=== PATIENT | male | born 1940 | race Caucasian/White ===

== ENCOUNTER 2017-05-25 11:45 | Emergency (ER) | payer MEDICARE, BC | END 2017-05-25 13:46 | disposition home or self-care (01) | LOC: D.ER 11:45 | DX: S99.912A Unspecified injury of left ankle, initial encounter (principal); W18.2XXA Fall in (into) shower or empty bathtub, initial encounter; Y93.E1 Activity, personal bathing and showering; Y92.022 Bathroom in mobile home as the place of occurrence of the external cause; S82.832A Other fracture of upper and lower end of left fibula, initial encounter for closed fracture; E11.9 Type 2 diabetes mellitus without complications; F17.200 Nicotine dependence, unspecified, uncomplicated ==

== ENCOUNTER → 2017-06-04 13:11 | Outpatient (CLI) | payer MEDICARE, BC | END | disposition home or self-care (01) | LOC: D.CT 13:11 → D.MRI 13:30 → D.CT 13:30 | DX: M79.672 Pain in left foot (principal); R22.42 Localized swelling, mass and lump, left lower limb; M79.605 Pain in left leg ==

== ENCOUNTER 2019-09-18 10:32 | Emergency (ER) | payer MEDICARE, BC ==
[~2019-09-18] VITALS: Ht 180.3 cm; Wt 103.2 kg
[2019-09-18 10:36] VITALS: Ht 180.3 cm; Wt 103.2 kg
[2019-09-18] MEDS ORDERED: LANOXIN125 MCG PO (10:40)
[2019-09-18] MEDS ORDERED: COUMADIN6 MG PO (10:40)
[2019-09-18] MEDS ORDERED: LIPITOR40 MG PO (10:41)
[2019-09-18] MEDS ORDERED: TOPROL XL100 MG PO (10:41)
[2019-09-18] MEDS ORDERED: FLOMAX0.4 MG PO (10:41)
[2019-09-18] MEDS ORDERED: DILTIAZEM 24HR120 M3 PO (10:41)
[2019-09-18] MEDS ORDERED: GLUCOPHAGE500 MG PO (10:41)
[2019-09-18] MEDS ORDERED: NEURONTIN 300300 MG PO (10:42)
[2019-09-18] MEDS ORDERED: COLCRYS0.6 MG PO (11:07)
[2019-09-18] MEDS ORDERED: INDOCIN25 MG PO (11:07)
[2019-09-18 11:25] VITALS: BP 146/58
== END 2019-09-18 11:26 | disposition home or self-care (01) ==
LOC: D.ER 10:32
DX: M10.9 Gout, unspecified (principal); E11.9 Type 2 diabetes mellitus without complications; I10 Essential (primary) hypertension; Z79.84 Long term (current) use of oral hypoglycemic drugs